=== PATIENT | female | born 1990 | race Caucasian/White ===

== ENCOUNTER 2018-01-17 11:50 | Emergency (ER) | payer MEDICAID, SELFPAY ==
--- NOTE | 2018-01-17 11:50 | DT_ITS ---
This patient was seen during an EMR downtime January 15, 2018 - January 22, 2018. This patient may have a combination of paper and electronic documentation or all paper documentation. All documentation is viewable within the e-chart portion of [employer] for each patient visit.
== END 2018-01-17 13:50 | disposition home or self-care (01) ==
LOC: ED 01-18 18:26
PROVIDERS: Emergency Provider Emergency Medicine; Family Provider Internal Medicine; PCP Internal Medicine
DX: G43.909 Migraine, unspecified, not intractable, without status migrainosus (principal)
CPT/HCPCS: 96361; 96374; 96375; 99283; J7030; A4216

== ENCOUNTER 2018-02-13 22:23 | Emergency (ER) | payer SELFPAY ==
[2018-02-13 22:23] VITALS: BP 108/80; PULSE 110; RESP 18; TEMP 37.1; O2SAT 98; BMI 38.2
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
--- NOTE | 2018-02-13 23:30 | RAD_ITS ---
STUDY: X-RAY - LEFT KNEE REASON FOR EXAM: Female, 27 years old. Knee pain rated over by a trailer TECHNIQUE: 2 view(s) of the knee. COMPARISON: None. FINDINGS: Normal visualized distal femur. Normal visualized proximal tibia and fibula. Normal proximal tibiofibular articulation. Normal medial femorotibial compartment. Normal lateral femorotibial compartment. There is mild degenerative arthrosis of the patellofemoral articulation. There is mild soft tissue swelling. RAD/Knee 1 or 2 Views IMPRESSION: Normal x-ray examination of the knee. Degenerative change of the left knee. No visualized acute fracture. Electronically Signed: Farzaneh Arredondo MD at 0:58 EDT Tel , Service support ,
[2018-02-13 23:43] VITALS: BP 109/57; PULSE 94; O2SAT 100
== END 2018-02-13 23:44 | disposition home or self-care (01) ==
PROVIDERS: Emergency Provider Emergency Medicine; Family Provider Preventive Medicine Occupational Medicine; PCP Preventive Medicine Occupational Medicine
DX: S81.012A Laceration without foreign body, left knee, initial encounter (principal); Z79.899 Other long term (current) drug therapy; V89.2XXA Person injured in unspecified motor-vehicle accident, traffic, initial encounter; Y93.39 Activity, other involving climbing, rappelling and jumping off; Y92.89 Other specified places as the place of occurrence of the external cause; Y99.8 Other external cause status
CPT/HCPCS: 12002; 73560; 99283

== ENCOUNTER → 2020-05-21 11:12 | Outpatient (CLI) | payer MEDICAID, SELFPAY ==
[2020-05-21 13:34] LABS: Absolute Lymphocyte Count 2.37 X10^3/uL (0.83-4.51); Absolute Neutrophil Count 8.2 X10^3/uL (2.0-7.7); Basophil# 0.02 X10^3/uL; Basophil% 0.2 % (0-1); Eosinophil# 0.12 X10^3/uL; Eosinophils% 1.1 % (0-5); Hematocrit 38.5 % (37-47); Hemoglobin 12.7 g/dL (12.0-15.0); Lymphocyte # 2.37 X10^3/ul (4.0); Lymphocyte % 20.8 % (19-41); Mean Corpuscular Hgb 29.1 pg (27.0-32.0); Mean Corpuscular Volume 88.1 fL (81-99); Mean Platelet Vol. 9.7 fl (6.2-12.0); Monocyte# 0.69 X10^3/uL; NRBC Flagged by Analyzer 0 % (0-5); Neutrophil # 8.17 X10^3/uL (2.7-7.7); Neutrophil % 71.5 % (47-70); Platelet Count 391 K/mm3 (150-450); RBC Distribution Width CV 13.2 % (11.6-14.6); RBC Distribution Width SD 42.5 fl (35.1-43.9); Red Blood Count 4.37 M/mm3 (4.2-5.4); White Blood Count 11.4 K/mm3 (4.4-11.0)
[2020-05-21 13:48] LABS: Color, Urine Yellow (Yellow); Glucose, Dipstick Normal (Normal); Ketone-Dipstick 15 mg/dl (Negative); Leukocyte Esterase-Dipstick 100 /ul (Negative); Nitrite-Dipstick Negative (Negative); Occult Blood-Urine 25 /ul (Negative); Protein-Dipstick 15 mg/dl (Negative); Urine Bilirubin Dipstick Negative (Negative); Urine Clarity Clear (Clear); Urine Urobilinogen 1 mg/dl (Normal)
[2020-05-21 13:51] LABS: Thyroid Stim Hormone (TSH) 2.07 uIU/mL (0.358-3.74)
[2020-05-21 14:01] LABS: Amphetamine Urine VISTA NEGATIVE (<1000 ng/mL); Barbiturate Urine VISTA NEGATIVE (< 200 ng/mL); Benzodiazepine Urine VISTA NEGATIVE (< 200 ng/mL); Cocaine Urine VISTA NEGATIVE (< 300 ng/mL); Ecstacy Urine VISTA NEGATIVE (< 500 ng/mL); Methadone Urine VISTA NEGATIVE (< 300 ng/mL); PCP Urine VISTA NEGATIVE (< 25 ng/mL); THC Urine VISTA NEGATIVE (< 50 ng/mL); Vista UDS pH Range 6
[2020-05-21 14:51] LABS: HIV - WCH Non-Reactive (Nonreactive); Hepatitis B Surface Antigen Non-Reactive (Nonreactive); Rubella IgG 10.9 IU/mL
[2020-05-21 14:52] LABS: Hepatitis C Antibody Non-Reactive (Nonreactive)
[2020-05-26 07:44] LABS: Chlamydia By Nucleic Acid AMP Negative (Negative)
[2020-05-26 08:03] LABS: Gonococcus By Nucleic Acid AMP Negative (Negative)
[2020-05-28 01:45] LABS: Prenatal RPR NONREACTIVE (NONREACTIVE)
== END ==
PROVIDERS: PCP Preventive Medicine Occupational Medicine; Visit Provider Obstetrics & Gynecology
DX: Z34.81 Encounter for supervision of other normal pregnancy, first trimester (principal)
CPT/HCPCS: 36415; 80307; 81002; 84443; 85025; 86703; 86762; 86803; 87340; 87491; 87591

== ENCOUNTER → 2020-05-25 10:44 | Outpatient (CLI) | payer MEDICAID, SELFPAY ==
[2020-05-25 12:05] LABS: Glucose Challenge Gest 1H 50g 167 mg/dL (70-140)
== END ==
PROVIDERS: PCP Preventive Medicine Occupational Medicine; Visit Provider Obstetrics & Gynecology
DX: Z34.82 Encounter for supervision of other normal pregnancy, second trimester (principal)
CPT/HCPCS: 36415; 82950

== ENCOUNTER → 2020-06-03 10:26 | Outpatient (CLI) | payer MEDICAID, SELFPAY ==
[2020-06-03 12:06] LABS: Glucose GTT-Gestation. Fasting 86 mg/dL (<105)
[2020-06-03 12:06] LABS: Glucose GTT-Gestational 1 Hr 167 mg/dL (<190)
[2020-06-03 13:37] LABS: Glucose GTT-Gestational 2 Hr 152 mg/dL (<165)
[2020-06-03 14:28] LABS: Glucose GTT-Gestational 3 Hr 128 L (<145)
== END ==
PROVIDERS: PCP Preventive Medicine Occupational Medicine; Referring Provider Obstetrics & Gynecology; Visit Provider Obstetrics & Gynecology
DX: O99.810 Abnormal glucose complicating pregnancy (principal); Z3A.00 Weeks of gestation of pregnancy not specified
CPT/HCPCS: 36415; 82951; 82952

== ENCOUNTER 2020-11-25 19:00 | Inpatient (IN) | payer MEDICAID, SELFPAY ==
[2020-11-25 19:29] VITALS: BMI 46.4
[2020-11-25] MEDS: 0.9% Normal Saline Single 100 ML IV.SOLN. INTRA-UTER (19:50)
[2020-11-25 19:51] VITALS: BP 122/67; PULSE 81
[2020-11-25 19:52] VITALS: TEMP 36.7
--- NOTE | 2020-11-25 20:16 | PCM.HP.OB ---
- Problem List (1) Encounter for induction of labor Status: Acute (2) Obesity affecting Status: Acute (3) History of depression Status: Acute (4) Positive GBS test Status: Acute (5) Post-dates Status: Acute History Date of Admission: 11/25/20 Final CYNTHIA: 11/22/20 Final CYNTHIA Source: LMP Gestational age: 40 Weeks and 3 Days History of this : This is a 30 year-old, G [3], P [0020], at 40 weeks 3 days gestational age. Presents for induction of labor due to post dates and obesity. Allergies No Known Allergies Allergy (Verified 02/13/18 22:25) Home Medications: Home Medications Bupropion HCl [Wellbutrin Sr] 150 mg PO DAILY 02/13/18 Smoking Status: Never smoker Alcohol: None Number of Fetus(es): 1 NST - FHR Rate Baby A Baseline: 135 Variability:: Moderate Accelerations:: 15 x 15 Decelerations:: None FHR Category:: Category I Uterine Activity:: None History Past Pregnancies: Past Pregnancies Delivery Date Name GA/ Weeks Outcome Route Wt Infant Sex Labor Length Anesthesia Delivery Location Provider FOB Labs: Mom's Problem List Problem Status Onset Code Encounter for induction of labor Acute Z34.90 Obesity affecting Acute O99.210 History of depression Acute Z86.59 Positive GBS test Acute B95.1 Post-dates Acute O48.0 Social History Marital Status: SINGLE Alleged father nu Smoking Status Never smoker Growth US at 36 weeks 5 days 58th percentile, 6lb 12oz GBS positive 1hr GCT elevated, 3hr GTT normal RPR nonreactive GC/CT negative B positive, antibody screen negative Hep C AB non reactive HBsAG negative HIV non reactive Rubella immune Urine tox screen negative Expected Infant Delivery Method: Spontaneous Vaginal Review of Systems Constitutional: Denies: Chills, Fever, Weight Change HEENT: Denies: Head Aches, Sinus Congestion, Sinus Drainage Cardiovascular: Denies: Chest Pain, Palpitations Respiratory: Denies: Cough, Shortness of breath at rest, Sputum production Gastrointestinal: Denies: Abdominal Pain, Nausea, Vomiting Genitourinary: Denies: Dysuria Musculoskeletal: Denies: Joint Pain, Joint Tenderness Skin: Denies: Rash, Wounds Neurological: Denies: Numbness, Tingling, Focal weakness Psychiatric: Denies: Anxiety, Depression, Homicidal Ideations, Suicidal Ideations Hematologic/ Lymphatic: Denies: Easy Bruising, Easy Bleeding Physical Exam Vitals: Vital Signs Temp Pulse BP 98.0 F 81 122/67 H 11/25/20 19:52 11/25/20 19:51 11/25/20 19:51 General: Alert, Oriented x3, Cooperative HEENT: Atraumatic, Normocephalic Cardiovascular: Regular rate, Regular Rhythm, No murmurs, No Ectopic Activity Lungs: Clear to auscultation, Normal air movement, No rhonchi, No wheeze Abdomen: Non Tender, Gravid Extremities:: No edema Neurological: Deep Tendon Reflexes 2+/4 and Symmetrical. Negative for: Clonus [employer] ATTENDANT: Normal external genitalia Estimated gestational size: Appropriate for gestational size Presentation: Cephalic Cervix Dilation (cm): 1 - Fish catheter inserted transcervically and 30ml of NS instilled, patient tolerated well. Station: -3 Effacement (%): 50 Assessment/Plan All Active Problems Encounter for induction of labor (Acute) Obesity affecting (Acute) History of depression (Acute) Positive GBS test (Acute) Post-dates (Acute) This is a 30 year-old, G [3], P [0020], at 40 weeks 3 days gestational age. A:Induction of labor at term Postdates Obesity Category 1 FHT P: 1) Admit to labor and delivery 2) IV and fluids per protocol 3) Continuous EFM 4) Fish catheter and PO cytotec for cervical ripening 5) Pitocin to be started after fish out and 4 hrs last cytotec dose 6) Planning unmedicated , would like nitrous. 7) collaborative physician and notified of patient status.
[2020-11-25] MEDS: Lactated Ringers 1,000 ML 50 ML IV (20:20)
[2020-11-25 20:36] LABS: Absolute Lymphocyte Count 3.07 X10^3/uL (0.83-4.51); Absolute Neutrophil Count 10.7 X10^3/uL (2.0-7.7); Basophil# 0.02 X10^3/uL; Basophil% 0.1 % (0-1); Eosinophil# 0.08 X10^3/uL; Eosinophils% 0.5 % (0-5); Hematocrit 34.3 % (37-47); Hemoglobin 11.6 g/dL (12.0-15.0); Lymphocyte # 3.07 X10^3/ul (0.83-4.51); Lymphocyte % 20.7 % (19-41); Mean Corp Hgb Conc 33.8 g/dL (32-36); Mean Corpuscular Hgb 30.7 pg (27.0-32.0); Mean Corpuscular Volume 90.7 fL (81-99); Mean Platelet Vol. 10.2 fl (6.2-12.0); Monocyte# 0.87 X10^3/uL; Monocyte% 5.9 % (0-10); NRBC Flagged by Analyzer 0 % (0-5); Neutrophil # 10.72 X10^3/uL (2.7-7.7); Neutrophil % 72.3 % (47-70); Platelet Count 364 K/mm3 (150-450); RBC Distribution Width CV 14.1 % (11.6-14.6); RBC Distribution Width SD 46.4 fl (35.1-43.9); Red Blood Count 3.78 M/mm3 (4.2-5.4); White Blood Count 14.8 K/mm3 (4.4-11.0)
[2020-11-25] MEDS: miSOPROStol 25 MCG TABLET PO (20:53)
[2020-11-25] MEDS: Lactated Ringers 500 ML 999 ML IV (22:24)
[2020-11-25 22:27] VITALS: TEMP 37.2; O2SAT 98
[2020-11-25 22:30] VITALS: BP 127/62; BP 140/64; PULSE 73
[2020-11-26] VITALS (146 sets, daily range): BP systolic 108–179; BP diastolic 53–88; PULSE 44–245; TEMP 36.1–38.5; O2SAT 82–100
[2020-11-26] MEDS: Oxytocin 30 units/NS 500 ml 30 UNITS/500 ML IV.SOLN IV (01:00)
[2020-11-26] MEDS: Lactated Ringers 500 ML 999 ML IV ×3 (01:36→15:55)
[2020-11-26] MEDS: Mag Hydrox/Al Hydrox/Simeth 30 ML UDC PO (01:45)
[2020-11-26] MEDS: Ondansetron 4 MG/2 ML Vial IV ×3 (01:51→14:32)
[2020-11-26] MEDS: fentaNYL-bupivacaine (epidural) 100 ML BAG EPIDURAL ×4 (02:29→16:00)
[2020-11-26] MEDS: Lactated Ringers 1,000 ML 200 ML IV ×3 (04:49→16:26)
[2020-11-26] MEDS: proCHLORPERazine 10 MG/2 ML Vial IV (08:16)
--- NOTE | 2020-11-26 09:01 | PN.OBGYN_ITS ---
Patient Problems: Active and Suspected Problems Encounter for induction of labor (Acute) Obesity affecting (Acute) History of depression (Acute) Positive GBS test (Acute) Post-dates (Acute) Subjective: Patient seen at bedside. Uncomfortable with minimal relief from epidural. Anesthesia to room to assess and dose. Objective: /CE-/-2 AROM for small amount of meconium fluid IUPC and FSE placed Category 2 tracing with variables and late decelerations-FHT improve with position changes - Physical Exam Vitals/I&O's: Vital Signs Temp Pulse BP Pulse Ox 99.1 F 103 H 140/56 H 100 11/26/20 08:57 11/26/20 09:00 11/26/20 08:57 11/26/20 09:00 Weight: 279 lb Body Mass Index (BMI) 46.4 Intake and Output for Last 24 Hours 11/24/20 11/25/20 11/26/20 23:59 23:59 23:59 Intake Total 791.67 / 791.67 3058.34 / 3058.34 Output Total 1050 / 1050 Balance 791.67 / 791.67 / General: Oriented x3 HEENT: Atraumatic Oral: Moist Mucosa Neck: Supple Lungs: Normal air movement Cardiovascular: Regular rate Abdomen: Soft, Gravid, Obese Extremities: Capillary Refill Less than 3 Seconds, No Calf Tenderness Skin: No rashes Neurological: Cranial nerves II-XII grossly intact Psych/Mental Status: Normal Affect, Appropriate Laboratory Results 11/25/20 20:20: WBC 14.8 H, RBC 3.78 L, Hgb 11.6 L, Hct 34.3 L, MCV 90.7, MCH 30.7, MCHC 33.8, RDW Std Deviation 46.4 H, RDW Coeff of Ady 14.1, Plt Count 364, MPV 10.2, Immature Gran % (Auto) 0.500, Neut % (Auto) 72.3 H, Lymph % (Auto) 20.7, [place] % (Auto) 5.9, Eos % (Auto) 0.5, Baso % (Auto) 0.1, Absolute Neuts (auto) 10.7 H, Absolute Lymphs (auto) 3.07, Nucleated RBC % 0 11/25/20 20:20: Blood Type B POSITIVE, Antibody Screen NEGATIVE Current Medications Acetaminophen (Acetaminophen 500 Mg Tablet) 500 - 1,000 mg PO Q6H PRN PRN PRN Reason: Pain Score 1-3 Al Hydroxide/Mg Hydroxide (Mag Hydrox/Al Hydrox/Simeth 30 Ml Udc) 15 - 30 ml PO Q4H PRN PRN PRN Reason: INDIGESTION Last Admin: 11/26/20 01:45 Dose: 30 ml Documented by: Citric Acid/Sodium Citrate (Sodium Citrate/Citric Acid 30 Ml Udc) 30 ml PO X1 PRN PRN Reason: Section Ephedrine Sulfate (Ephedrine Sulfate 50 Mg/Ml Ampul) 10 mg IV Q10M PRN PRN Reason: hypotension Ephedrine Sulfate (Ephedrine Sulfate 50 Mg/Ml Ampul) 10 mg IM Q30M PRN PRN Reason: hypotension Fentanyl Citrate (Fentanyl 100 Mcg/2 Ml Ampul) 25 - 50 mcg IV Q2H PRN PRN PRN Reason: Pain Score 4-10 Fentanyl/Bupivacaine/Sodium Chlor (Fentanyl-Bupivacaine (Epidural) 100 Ml Bag) 0 ml EPIDURAL UD [facility]; Protocol Last Admin: 11/26/20 06:52 Dose: 100 ml Documented by: Lactated Ringer's () 500 mls @ 999 mls/hr IV .Q31M PRN PRN Reason: Epidural Last Infusion: 11/26/20 02:07 Dose: Infused Documented by: Lactated Ringer's () 500 mls @ 999 mls/hr IV .Q31M PRN PRN Reason: Corrective Measures Last Admin: 11/26/20 08:55 Dose: 999 mls/hr Documented by: Lactated Ringer's () 1,000 mls @ 50 mls/hr IV .Q20H MARTI Last Infusion: 11/26/20 08:26 Dose: 0 mls/hr Documented by: Penicillin G Potassium/Dextrose (Penicillin G Potassium) 3 mu in 50 mls @ 100 mls/hr IV Q4H MARTI Last Infusion: 11/26/20 05:59 Dose: Infused Documented by: Oxytocin/Sodium Chloride () 30 units in 500 mls @ 2 mls/hr IV .Q250H MARTI Last Infusion: 11/26/20 08:26 Dose: 0 mls/hr Documented by: Nalbuphine HCl (Nalbuphine 10 Mg/Ml Ampul) 5 mg IV Q3H PRN PRN PRN Reason: ITCHING Naloxone HCl (Naloxone 0.4 Mg/Ml Syringe) 0.02 mg IV Q1M PRN PRN Reason: RR <10 and pt unresponsive Ondansetron HCl (Ondansetron 4 Mg/2 Ml Vial) 4 mg IV Q4H PRN PRN PRN Reason: NAUSEA Last Admin: 11/26/20 07:51 Dose: 4 mg Documented by: Prochlorperazine Edisylate (Prochlorperazine 10 Mg/2 Ml Vial) 10 mg IV Q6H PRN PRN PRN Reason: NAUSEA Last Admin: 11/26/20 08:16 Dose: 10 mg Documented by: Sodium Chloride (0.9% Saline Lock 10 Ml Syringe) 10 - 40 ml IV X1 PRN PRN Reason: SALINE FLUSH Medical Necessity - Tobacco Use Smoking Status: Never smoker Assessment/Plan All Active Problems Encounter for induction of labor (Acute) Obesity affecting (Acute) History of depression (Acute) Positive GBS test (Acute) Post-dates (Acute) at 40.4 weeks gestation for induction of labor for postdates and obesity Category 2 tracing- FHT corrects with IV fluid bolus and position change Pitocin off - O2 10 L via tight face mask IV fluid bolus Restart Pitocin IV per protocol at 2 mu/min Anticipate Dr. Little notified and is collaborating physician
[2020-11-26] MEDS: Acetaminophen 500 MG Tablet PO (11:16)
--- NOTE | 2020-11-26 12:11 | PCM.PN.OB ---
Patient Problems: Active and Suspected Problems Encounter for induction of labor (Acute) Obesity affecting (Acute) History of depression (Acute) Positive GBS test (Acute) Post-dates (Acute) Subjective: Patient seen at bedside. Sitting in high captains position. Comfortable with epidural. Denies any pain or feeling contractions. Objective: CE- /-2- anterior cervix swelling Cat. 2 tracing with minimal variables, moderate variability Pitocin 2 mu/min - Physical Exam Vitals/I&O's: Vital Signs Temp Pulse BP Pulse Ox 99.7 F H 104 H 142/74 H 98 11/26/20 11:37 11/26/20 11:52 11/26/20 11:37 11/26/20 11:52 Weight: 279 lb Body Mass Index (BMI) 46.4 Intake and Output for Last 24 Hours 11/24/20 11/25/20 11/26/20 23:59 23:59 23:59 Intake Total 791.67 / 791.67 4289.33 / 4289.33 Output Total 1600 / 1600 Balance 791.67 / 791.67 2689.33 / 2689.33 General: Alert, Oriented x3, Cooperative HEENT: Atraumatic Neck: Supple Lungs: Normal air movement Cardiovascular: Regular rate Abdomen: Soft, Non Tender, Gravid Skin: No rashes Musculoskeletal: No Tenderness to Palpation of Joints or Extremities Neurological: Cranial nerves II-XII grossly intact Laboratory Results 11/25/20 20:20: WBC 14.8 H, RBC 3.78 L, Hgb 11.6 L, Hct 34.3 L, MCV 90.7, MCH 30.7, MCHC 33.8, RDW Std Deviation 46.4 H, RDW Coeff of Ady 14.1, Plt Count 364, MPV 10.2, Immature Gran % (Auto) 0.500, Neut % (Auto) 72.3 H, Lymph % (Auto) 20.7, [place] % (Auto) 5.9, Eos % (Auto) 0.5, Baso % (Auto) 0.1, Absolute Neuts (auto) 10.7 H, Absolute Lymphs (auto) 3.07, Nucleated RBC % 0 11/25/20 20:20: Blood Type B POSITIVE, Antibody Screen NEGATIVE Current Medications Acetaminophen (Acetaminophen 500 Mg Tablet) 500 - 1,000 mg PO Q6H PRN PRN PRN Reason: Pain Score 1-3 Last Admin: 11/26/20 11:16 Dose: 1,000 mg Documented by: Al Hydroxide/Mg Hydroxide (Mag Hydrox/Al Hydrox/Simeth 30 Ml Udc) 15 - 30 ml PO Q4H PRN PRN PRN Reason: INDIGESTION Last Admin: 11/26/20 01:45 Dose: 30 ml Documented by: Citric Acid/Sodium Citrate (Sodium Citrate/Citric Acid 30 Ml Udc) 30 ml PO X1 PRN PRN Reason: Section Ephedrine Sulfate (Ephedrine Sulfate 50 Mg/Ml Ampul) 10 mg IV Q10M PRN PRN Reason: hypotension Ephedrine Sulfate (Ephedrine Sulfate 50 Mg/Ml Ampul) 10 mg IM Q30M PRN PRN Reason: hypotension Fentanyl Citrate (Fentanyl 100 Mcg/2 Ml Ampul) 25 - 50 mcg IV Q2H PRN PRN PRN Reason: Pain Score 4-10 Fentanyl/Bupivacaine/Sodium Chlor (Fentanyl-Bupivacaine (Epidural) 100 Ml Bag) 0 ml EPIDURAL UD [facility]; Protocol Last Admin: 11/26/20 11:17 Dose: 100 ml Documented by: Lactated Ringer's () 500 mls @ 999 mls/hr IV .Q31M PRN PRN Reason: Epidural Last Infusion: 11/26/20 02:07 Dose: Infused Documented by: Lactated Ringer's () 500 mls @ 999 mls/hr IV .Q31M PRN PRN Reason: Corrective Measures Last Infusion: 11/26/20 09:26 Dose: Infused Documented by: Lactated Ringer's () 1,000 mls @ 50 mls/hr IV .Q20H [facility] Last Admin: 11/26/20 10:51 Dose: 200 mls/hr Documented by: Penicillin G Potassium/Dextrose (Penicillin G Potassium) 3 mu in 50 mls @ 100 mls/hr IV Q4H [facility] Last Infusion: 11/26/20 10:06 Dose: Infused Documented by: Oxytocin/Sodium Chloride () 30 units in 500 mls @ 2 mls/hr IV .Q250H [facility] Last Infusion: 11/26/20 11:31 Dose: 2 mls/hr Documented by: Nalbuphine HCl (Nalbuphine 10 Mg/Ml Ampul) 5 mg IV Q3H PRN PRN PRN Reason: ITCHING Naloxone HCl (Naloxone 0.4 Mg/Ml Syringe) 0.02 mg IV Q1M PRN PRN Reason: RR <10 and pt unresponsive Ondansetron HCl (Ondansetron 4 Mg/2 Ml Vial) 4 mg IV Q4H PRN PRN PRN Reason: NAUSEA Last Admin: 11/26/20 07:51 Dose: 4 mg Documented by: Prochlorperazine Edisylate (Prochlorperazine 10 Mg/2 Ml Vial) 10 mg IV Q6H PRN PRN PRN Reason: NAUSEA Last Admin: 11/26/20 08:16 Dose: 10 mg Documented by: Sodium Chloride (0.9% Saline Lock 10 Ml Syringe) 10 - 40 ml IV X1 PRN PRN Reason: SALINE FLUSH Medical Necessity - Tobacco Use Smoking Status: Never smoker Assessment/Plan All Active Problems Encounter for induction of labor (Acute) Obesity affecting (Acute) History of depression (Acute) Positive GBS test (Acute) Post-dates (Acute) at 40.4 weeks gestation for induction of labor for postdates and obesity. Give Benadryl 50 mg IV x 1 for cervical swelling Continue to titrate Pitocin per protocol Continue with position changes GBS positive- adequately treated Continue with plan of care Anticipate
[2020-11-26] MEDS: DiphenhydrAMINE 50 MG/ML Syringe IV (12:49)
[2020-11-26] MEDS: Amnioinfusion- 0.9% NS 1,000 ML IV.SOLN. INTRA-UTER (15:11)
[2020-11-26 15:26] LABS: Protein, Urine (Random) 112.3 mg/dL (<11.9); Protein:Creat Ratio 729 mg/g CRE (0-200)
[2020-11-26 15:27] LABS: Hematocrit 32.8 % (37-47); Hemoglobin 10.9 g/dL (12.0-15.0); Mean Corp Hgb Conc 33.2 g/dL (32-36); Mean Corpuscular Hgb 29.8 pg (27.0-32.0); Mean Corpuscular Volume 89.6 fL (81-99); Mean Platelet Vol. 10.1 fl (6.2-12.0); Platelet Count 316 K/mm3 (150-450); RBC Distribution Width CV 14.2 % (11.6-14.6); RBC Distribution Width SD 46.2 fl (35.1-43.9); Red Blood Count 3.66 M/mm3 (4.2-5.4); White Blood Count 28.4 K/mm3 (4.4-11.0)
[2020-11-26 15:28] LABS: AST(SGOT) 8 U/L (15-37); Alanine Aminotransfer ALT/SGPT 9 U/L (13-56); Creatinine, Serum 0.55 mg/dL (0.55-1.02); EST Glomerular Filtration Rate 139 mL/min (>60); Est Glom Filt Rate - Afr Amer 169 mL/min (>60); Estimated Creatinine Clearance 135.81 ml/min; Uric Acid 4.4 mg/dL (2.6-6.0)
[2020-11-26 15:44] LABS: International Normalized Ratio 1.1; Partial Thromboplast Time 27.2 Seconds (24.1-36.2); Prothrombin Time (Protime)PT. 13.3 SECONDS (11.7-14.9)
--- NOTE | 2020-11-26 16:18 | PCM.PN.BLA ---
Progress Note Patient seen at bedside. Feeling pain and contractions. Anesthesia dosing epidural. CE- /90/0 anterior lip Cat. 2 tracing with occasional variables and late decelerations Pitocin off Amnioinfusion running O2 10 L via tight face mask on FHTs resolve with position change, fluid bolus and O2 Dr. Little updated via phone- will reevaluate at 5pm STROKE Vital Signs/Narrative: Vital Signs Temp Pulse BP Pulse Ox 11/26/20 16:17 92 100 11/26/20 16:15 89 144/72 H 11/26/20 16:12 88 100 11/26/20 16:10 99 143/71 H 11/26/20 16:07 87 100 11/26/20 16:05 88 133/80 H 11/26/20 16:02 100 100 11/26/20 16:00 88 120/67 11/26/20 15:57 85 121/60 H 11/26/20 15:56 85 93 11/26/20 15:51 117/73 11/26/20 15:50 86 97 11/26/20 15:45 88 119/64 97 11/26/20 15:41 87 113/62 11/26/20 15:40 97 11/26/20 15:37 100.2 F H 11/26/20 15:35 88 127/62 H 97 11/26/20 15:31 88 138/63 H 11/26/20 15:30 95 98 11/26/20 15:28 88 140/62 H 11/26/20 15:27 87 90 11/26/20 15:25 89 97 11/26/20 15:20 97 98 11/26/20 15:15 93 98 11/26/20 15:10 97 98 11/26/20 14:51 90 121/63 H 11/26/20 14:45 100 134/75 H 11/26/20 14:39 105 H 138/85 H 90 11/26/20 14:38 101 H 98 11/26/20 14:34 102 H 170/81 H 11/26/20 14:33 101 H 99 11/26/20 14:28 99 98 11/26/20 13:59 90 135/63 H 11/26/20 13:57 98.9 F 97 95 11/26/20 13:47 44 L 82 11/26/20 13:14 98.4 F 11/26/20 12:55 101.3 F H 98 98 11/26/20 12:36 103 H 139/68 H
[2020-11-26] MEDS: Oxytocin 30 units/NS 500 ml 30 UNITS/500 ML IV.SOLN 334 UNITS IV (18:28)
--- NOTE | 2020-11-26 19:20 | OP.PCM_ITS ---
Problem List (1) (spontaneous vaginal delivery) Status: Acute (2) Second degree perineal laceration during delivery Status: Acute (3) Encounter for induction of labor Status: Acute (4) Obesity affecting Status: Acute (5) Post-dates Status: Acute Report of Operation Date of Procedure: 11/26/20 Pre-Operative Diagnosis: Post term gestation, Obesity Post-Operative Diagnosis: Same, live female infant Vaginal Delivery Maternal Presentation: Medically Indicated Induction Patient is a at 40.4 for induction of labor for post dates and obesity. Patient is GBS positive. Method of Induction: Pitocin, Victor Bulb, Amniotomy, Cytotec Medical Reason for Induction: Post term , - - Obesity Amniotic Membrane Rupture Type: Artificial Rupture of Membrane time: 819 Amniotic Fluid Description: Lightly stained meconium Final CYNTHIA: 11/22/20 Gestational age: 40 Weeks and 4 Days doctor who attended delivery (if requested by OB): Liana Noe Date of Procedure: 11/26/20 Pre-Operative Diagnosis: Post term gestation, obesity, induction of labor Post-Operative Diagnosis: live female infant Surgery/ Procedure Performed: Spontaneous Vaginal Delivery Type of Anesthesia: Epidural Description of Procedure: Called to patient's room due to variable decelerations. CE completed and patient found to be completely dilated and +1 station. Stayed and gave support to patient through pushing. Patient pushed well with contractions. head delivered with minimal effort followed immediately by anterior and posterior shoulder. Large amount of meconium fluid came out after delivered. Terminal meconium present. Site Technician and respiratory staff in room for delivery. Vigorous placed on maternal abdomen and was attended to by nursing staff. 3 vessel cord was clamped and cut after 2 minute delay by FOB. placed immediately skin to skin with patient. Pitocin IV started for active management of the third stage of labor. Placenta delivered spontaneously and intact via Paige. After inspection, patient was found to have second degree vaginal and perineal laceration. Laceration repaired with Vicryl 3-0 in usual fashion and hemostasis obtained. Fundus firm 1 below U. EBL 350 cc, APGARS 8/9. Vaginal sweep completed by me. All instruments, needles and sponges accounted for. Infant and patient bonding well as this time. Dr. Little notified of delivery. Presentation: Vertex Placental Delivery Description: Spontaneous Placenta Disposition: [facility] Cord Vessel Description: 3 Vessels Cord Entanglement: None Estimated Blood Loss: 350 A gender: Female (1 minute): 8 (5 minute): 9 Episiotomy Description: None Laceration: Perineal Extension/lac, Vaginal Extension/lac, 2nd degree Medications given after delivery: IV Pitocin Complications: None
[2020-11-26] MEDS: Acetaminophen 500 MG Tablet 1000 MG PO (20:26)
[2020-11-26] MEDS: 0.9% Saline Lock 10 ML Syringe IV (20:30)
[2020-11-27] VITALS (10 sets, daily range): BP systolic 110–146; BP diastolic 54–70; PULSE 85–100; RESP 16–18; TEMP 36.3–37.3; O2SAT 98
[2020-11-27] MEDS: Ibuprofen 600 MG Tablet PO ×2 (02:17→11:48)
[2020-11-27 05:28] LABS: Hematocrit 29.8 % (37-47); Mean Corp Hgb Conc 33.6 g/dL (32-36); Mean Corpuscular Hgb 30.8 pg (27.0-32.0); Mean Corpuscular Volume 91.7 fL (81-99); Mean Platelet Vol. 10.1 fl (6.2-12.0); Platelet Count 304 K/mm3 (150-450); RBC Distribution Width CV 14.5 % (11.6-14.6); RBC Distribution Width SD 48.5 fl (35.1-43.9); Red Blood Count 3.25 M/mm3 (4.2-5.4); White Blood Count 24.1 K/mm3 (4.4-11.0)
[2020-11-27] MEDS: Acetaminophen 500 MG Tablet 1000 MG PO ×2 (05:46→16:43)
--- NOTE | 2020-11-27 06:56 | PCM.PN.OB ---
Patient Problems: Active and Suspected Problems Encounter for induction of labor (Acute) Obesity affecting (Acute) History of depression (Acute) Positive GBS test (Acute) Post-dates (Acute) (spontaneous vaginal delivery) (Acute) Second degree perineal laceration during delivery (Acute) Subjective: Patient seen at bedside. Resting well. Keeping ice to perineum. Ambulating and voiding without difficulty. Breast feeding with support. Unsure if she desires discharge home tonight or tomorrow. Objective: WBC- 28.4 to 24.1 today HGB- 10.9-10.0 today - Physical Exam Vitals/I&O's: Vital Signs Temp Pulse Resp BP Pulse Ox 97.4 F L 98 18 126/64 H 98 11/27/20 05:01 11/27/20 05:02 11/27/20 05:01 11/27/20 05:02 11/27/20 00:47 Oxygen Delivery Method Room Air Weight: 279 lb Body Mass Index (BMI) 46.4 Intake and Output for Last 24 Hours 11/25/20 11/26/20 11/27/20 23:59 23:59 23:59 Intake Total 791.67 / 791.67 7629.53 / 7629.53 Output Total 3050 / 3050 1700 / 1700 Balance 791.67 / 791.67 4579.53 / 4579.53 -1700 / -1700 General: Alert, Oriented x3, Cooperative, No apparent distress HEENT: Atraumatic Oral: Moist Mucosa Neck: Supple Lungs: Normal air movement Cardiovascular: Regular rate Abdomen: Soft, Non Tender, Obese Extremities: No Calf Tenderness Skin: No rashes Musculoskeletal: No Tenderness to Palpation of Joints or Extremities Neurological: Cranial nerves II-XII grossly intact Psych/Mental Status: Normal Affect, Appropriate Laboratory Results 11/26/20 15:00: PT 13.3, INR 1.1, APTT 27.2 11/26/20 15:00: Creatinine 0.55, Estim Creat Clear Calc 135.81, Est GFR (MDRD) Af Amer 169, Est GFR (MDRD) Non-Af 139, Uric Acid 4.4, AST 8 L, ALT 9 L 11/26/20 15:00: U Random Total Protein 112.3 H, Urine Creatinine 154.00, Protein/Creatinin Ratio 729 H 11/26/20 15:00: WBC 28.4 H, RBC 3.66 L, Hgb 10.9 L, Hct 32.8 L, MCV 89.6, MCH 29.8, MCHC 33.2, RDW Std Deviation 46.2 H, RDW Coeff of Ady 14.2, Plt Count 316, MPV 10.1 11/27/20 05:15: WBC 24.1 H, RBC 3.25 L, Hgb 10.0 L, Hct 29.8 L, MCV 91.7, MCH 30.8, MCHC 33.6, RDW Std Deviation 48.5 H, RDW Coeff of Ady 14.5, Plt Count 304, MPV 10.1 Current Medications Acetaminophen (Acetaminophen 500 Mg Tablet) 1,000 mg PO Q8H PRN PRN PRN Reason: Pain Score 1-10 Last Admin: 11/27/20 05:46 Dose: 1,000 mg Documented by: Bisacodyl (Bisacodyl 10 Mg Suppository) 10 mg RC UD PRN PRN Reason: If no BM Dibucaine (Dibucaine 30 Gm Tube) 1 applic TOPICAL TID PRN PRN; Protocol PRN Reason: Discomfort Hydrocortisone (Hydrocortisone 2.5% Crm) 1 applic TOPICAL TID PRN PRN; Protocol PRN Reason: Discomfort Ibuprofen (Ibuprofen 600 Mg Tablet) 600 mg PO Q6H PRN PRN PRN Reason: Pain Score 1-10 Last Admin: 11/27/20 02:17 Dose: 600 mg Documented by: Methylergonovine Maleate (Methylergonovine 0.2 Mg/Ml Ampul) 0.2 mg IM X1 PRN PRN Reason: Excess bleeding/uterine atony Ondansetron HCl (Ondansetron 4 Mg/2 Ml Vial) 4 mg IV Q4H PRN PRN PRN Reason: Nausea Senna/Docusate Sodium (Senna/Docusate Sodium 1 Tablet) 1 - 2 tablet PO DAILY PRN PRN PRN Reason: Constipation Simethicone (Simethicone 80 Mg Tablet) 80 mg PO PCHS PRN PRN Reason: Indigestion/Stomach pain Sodium Chloride (0.9% Saline Lock 10 Ml Syringe) 5 - 15 ml IV UD PRN PRN Reason: SALINE FLUSH Last Admin: 11/26/20 20:30 Dose: 10 ml Documented by: Throat Lozenges (Benzocaine/Lanolin/Aloe Vera 1 Applic Each) 1 applic TOPICAL 4X/DAY PRN PRN; Protocol PRN Reason: Pain/Inflammation Medical Necessity - Tobacco Use Smoking Status: Never smoker Assessment/Plan All Active Problems Encounter for induction of labor (Acute) Obesity affecting (Acute) History of depression (Acute) Positive GBS test (Acute) Post-dates (Acute) (spontaneous vaginal delivery) (Acute) Second degree perineal laceration during delivery (Acute) PPD #1 - 2nd degree laceration Routine care support Anticipate discharge home tomorrow
--- NOTE | 2020-11-27 14:22 | DCINST_ITS ---
Discharge Diet: No Restrictions Discharge Activity: Return to Normal Activity, May not drive while taking narcotic pain medications., May Shower May resume sexual activity in: 4-6 weeks Additional Activity Instructions:: Nothing in the vagina for 4-6 weeks. You may return to work/school in 6 weeks. Call your doctor if your incision/area has: Continuous Slow Oozing, Sudden Increased Bleeding, Increased Pain/ Swelling, Increased Redness, Foul Smelling Discharge Additional Instructions: If you experience any of the following, contact your healthcare provider. * Bleeding that soaks a pad every hour for 2 hours * Fever 100.4 or higher * Unrelieved incision or abdominal pain * Swelling, redness, discharge or bleeding from your incision or episiotomy site * Your incision begins to separate * Problems urinating (including inability to urinate or burning while urinating). * Visual changes * Severe headache * Flu-like symptoms * Pain or redness in one of both of your breasts * Pain, warmth, tenderness or swelling in your legs, especially the calf area * Frequent nausea and vomiting * Symptoms of depression or anxiety If you experience any of the following, call 911 or go to the nearest Emergency Room. * Chest pain * Problems breathing * Seizure activity * Partial or complete paralysis of a body part, slurred speech, weakness or drooping of the face, or a sudden inability to walk or hold your balance Allergies/Adverse Reactions: Allergies No Known Allergies Allergy (Verified 11/25/20 20:19) Medications to take at Discharge Magnesium 200 mg PO BID 11/25/20 Pnv No.95/Ferrous Fum/Folic AC [ Caplet] 1 tablet PO DAILY 11/25/20 Ibuprofen [Motrin] 600 mg PO Q6H PRN #30 tab 11/27/20 The following prescriptions were given: Ibuprofen [Motrin] 600 mg PO Q6H PRN #30 tab PRN Reason: Pain Transmission Status: Pending to [facility] #30 Please Follow Up With: Radha Matias, GILLIAN - [phone] When: Call to make an appointment with your provider's office in 1-2 and 6 weeks or as needed Primary Care Physician: Ashwin Ballesteros DO [Primary Care Provider] - Test Results: Test results from this visit will be discussed in further detail at your follow- up appointment, if applicable.
--- NOTE | 2020-11-27 14:22 | PCM.DCVAG ---
Discharge Diet: No Restrictions Discharge Activity: Return to Normal Activity, May not drive while taking narcotic pain medications., May Shower May resume sexual activity in: 4-6 weeks Additional Activity Instructions:: Nothing in the vagina for 4-6 weeks. You may return to work/school in 6 weeks. Call your doctor if your incision/area has: Continuous Slow Oozing, Sudden Increased Bleeding, Increased Pain/ Swelling, Increased Redness, Foul Smelling Discharge Additional Instructions: If you experience any of the following, contact your healthcare provider. Bleeding that soaks a pad every hour for 2 hours Fever 100.4 or higher Unrelieved incision or abdominal pain Swelling, redness, discharge or bleeding from your incision or episiotomy site Your incision begins to separate Problems urinating (including inability to urinate or burning while urinating). Visual changes Severe headache Flu-like symptoms Pain or redness in one of both of your breasts Pain, warmth, tenderness or swelling in your legs, especially the calf area Frequent nausea and vomiting Symptoms of depression or anxiety If you experience any of the following, call 911 or go to the nearest Emergency Room. Chest pain Problems breathing Seizure activity Partial or complete paralysis of a body part, slurred speech, weakness or drooping of the face, or a sudden inability to walk or hold your balance Allergies/Adverse Reactions: Allergies No Known Allergies Allergy (Verified 11/25/20 20:19) Medications to take at Discharge Magnesium 200 mg PO BID 11/25/20 Pnv No.95/Ferrous Fum/Folic AC [ Caplet] 1 tablet PO DAILY 11/25/20 Ibuprofen [Motrin] 600 mg PO Q6H PRN #30 tab 11/27/20 The following prescriptions were given: Ibuprofen [Motrin] 600 mg PO Q6H PRN #30 tab PRN Reason: Pain Transmission Status: Pending to [employer] [facility] #30 Please Follow Up With: Radha Matias, MEÑO - [phone] When: Call to make an appointment with your provider's office in 1-2 and 6 weeks or as needed Primary Care Physician: Ashwin Ballesteros DO [Primary Care Provider] - Test Results: Test results from this visit will be discussed in further detail at your follow-up appointment, if applicable.
== END 2020-11-27 20:50 | disposition home or self-care (01) | DRG 560 ==
PROVIDERS: Advanced Practice Midwife; Admitting Provider Advanced Practice Midwife; PCP Preventive Medicine Occupational Medicine; Visit Provider Advanced Practice Midwife
DX: O48.0 Post-term pregnancy (principal); O76 Abnormality in fetal heart rate and rhythm complicating labor and delivery; O99.214 Obesity complicating childbirth; O99.824 Streptococcus B carrier state complicating childbirth; O77.0 Labor and delivery complicated by meconium in amniotic fluid; Z37.0 Single live birth; Z3A.40 40 weeks gestation of pregnancy; F32.9 Major depressive disorder, single episode, unspecified; O99.344 Other mental disorders complicating childbirth; O70.1 Second degree perineal laceration during delivery
CPT/HCPCS: 59025; 59050; 82565; 82570; 84156; 84450; 84460; 84550; 85025; 85027; 85610; 85730; 86850; 86900; 86901; 99218; J7030; J7120; A4216; G0378; J2405; J3490